=== PATIENT | female | born 1960 | race Caucasian/White ===

== ENCOUNTER 2017-07-08 22:12 | Emergency (ER) | payer OTHER ==
[~2017-07-08] VITALS: Ht 165.1 cm; Wt 68.9 kg
[2017-07-08] MEDS ORDERED: LIDEX 0.05% CRE15 GM T (22:27)
[2017-07-08] MEDS ORDERED: PREDNISONE10 MG PO (22:27)
== END 2017-07-08 22:50 | disposition home or self-care (01) ==
LOC: ED 22:12
DX: L23.7 Allergic contact dermatitis due to plants, except food (principal); Z88.2 Allergy status to sulfonamides